=== PATIENT | female | born 1975 | race Caucasian/White ===

== ENCOUNTER 2024-03-16 01:00 | Emergency (ER) | payer OTHER ==
[~2024-03-16] VITALS: Ht 157.5 cm; Wt 61.4 kg
[2024-03-16 01:06] VITALS: TEMP 99.2
[2024-03-16] MEDS: normal saline 1000ml 1,000 ML IV ONE ×3 (01:12→01:59)
[2024-03-16] MEDS: magnesium sulf-water 2g/50mL 50 ML IV ONE (01:13)
[2024-03-16] MEDS: LORazepam 2 mg/ml vial IV ONE (01:16)
[2024-03-16 01:28] LABS: BASOPHILS # (AUTO) 0.1 X10'3 (0-0.2); BASOPHILS % (AUTO) 0.4 % (0-1); EOSINOPHILS # (AUTO) 0.3 X10'3 (0-0.9); EOSINOPHILS % (AUTO) 1.5 % (0-6); HEMATOCRIT 42.8 % (35.0-45.0); HEMOGLOBIN 13.8 g/dl (12.0-16.0); LYMPHOCYTES # (AUTO) 5.8 X10'3 (1.1-4.8); LYMPHOCYTES % (AUTO) 30.1 % (21-51); MEAN CORPUSCULAR HEMOGLOBIN 30.9 PG (27.0-31.0); MEAN CORPUSCULAR HGB CONC 32.3 g/dL (33.0-36.5); MEAN CORPUSCULAR VOLUME 95.9 FL (78-98); MEAN PLATELET VOLUME 9.8 FL (7.4-10.4); MONOCYTES # (AUTO) 0.5 X10'3 (0-0.9); MONOCYTES % (AUTO) 2.8 % (2-12); NEUTROPHILS # (AUTO) 12.6 X10'3 (1.8-7.7); NEUTROPHILS % (AUTO) 65.2 % (42-75); PLATELET COUNT 335 X10'3 (140-440); RED BLOOD COUNT 4.47 X10'6 (4.20-5.60); RED CELL DISTRIBUTION WIDTH 14.7 % (11.5-14.5); WHITE BLOOD COUNT 19.3 X10'3 (4.5-11.0)
[2024-03-16 01:36] LABS: ALBUMIN 4.5 G/DL (3.4-5.0); ANION GAP 24 (8-16); BLOOD UREA NITROGEN 11 MG/DL (7-18); BUN/CREATININE RATIO 10.6 (10.0-20.0); CALCIUM 9.3 MG/DL (8.5-10.1); CHLORIDE 98 MMOL/L (99-107); CREATININE 1.04 MG/DL (0.40-0.90); GLUCOSE 279 MG/DL (70-104); MAGNESIUM 1.8 MG/DL (1.5-2.4); POTASSIUM 3.5 MMOL/L (3.5-5.1); SODIUM 139 MMOL/L (135-145); TOTAL CARBON DIOXIDE 16.8 MMOL/L (24-32); eCRCL 52 ML/MIN; eGFR 56 ML/MIN
[2024-03-16] MEDS: HYDROcodone/acetaminophen 10/325mg tab PO ONE (02:13)
[2024-03-16 03:07] VITALS: BP 157/87; PULSE 128; RESP 20; O2SAT 96
== END 2024-03-16 03:01 ==
LOC: ER 01:01
DX: E86.0 Dehydration (principal); F41.9 Anxiety disorder, unspecified
CPT/HCPCS: 36415; 80048; 83735; 85025; 93005; 96361; 96365; 96375; 99284; J2060; J7030